=== PATIENT | female | born 1965 | race Caucasian/White ===

== ENCOUNTER 2016-04-03 05:29 | Day surgery (SDC) | payer OTHER ==
[~2016-04-03] VITALS: Ht 165.1 cm; Wt 64.1 kg
[2016-04-03] VITALS (12 sets, daily range): BP systolic 95–117; BP diastolic 51–77; PULSE 61–90; RESP 15–22; Ht 165.1 cm; Wt 64.1 kg
--- NOTE | 2016-04-03 06:49 | RADRPT ---
PROCEDURE: CHEST - 1 VIEW CLINICAL INDICATION: 50-year-old female with postmenopausal bleeding. This is a preoperative stud y. TECHNIQUE: A single frontal AP view of the chest was performed. The images were reviewed on a PAC S workstation. COMPARISON: None. FINDINGS: The cardiomediastinal silhouette is mildly enlarged. There is no evidence for an infiltrate. There is no evidence for congestive heart failure. There is no evidence for pneumothorax. The osseous str uctures are intact. IMPRESSION: Mild cardiomegaly. .Betito Silver MD, MD Date Time Electronically viewed and signed by .Betito Silver MD, MD on 04/03/2016 06:48 .M/
[2016-04-03] MEDS ORDERED: EPHEDrine SULFATE 50 MG/5 ML SYG ONE (07:00)
[2016-04-03 07:22] LABS: BASOPHILS % 0.5 % (0.0-2.0); EOSINOPHILS # 0.2 10^3/ul (0.0-0.5); EOSINOPHILS % 3.4 % (0.0-7.0); HEMATOCRIT 36.9 % (37.0-47.0); HEMOGLOBIN 12.6 g/dl (12.0-16.0); LYMPHOCYTES # 1.5 10^3/ul (0.8-2.9); LYMPHOCYTES % 33.2 % (15.0-51.0); MEAN CORPUSCULAR HEMOGLOBIN 31.3 pg (29.0-33.0); MEAN CORPUSCULAR HGB CONC 34.1 g/dl (32.0-37.0); MEAN PLATELET VOLUME 10.4 fl (7.4-10.4); MONOCYTE # 0.4 10^3/ul (0.3-0.9); MONOCYTES % 8.2 % (0.0-11.0); NEUTROPHIL # 2.5 10^3/ul (1.6-7.5); NEUTROPHILS % 54.7 % (39.0-77.0); PLATELET COUNT 167 10^3/UL (140-440); RED BLOOD COUNT 4.01 10^6/ul (4.20-5.40); RED CELL DISTRIBUTION WIDTH 13.9 % (11.5-14.5); UNCORRECTED WBC 4.5 10^3/ul (4.8-10.8); WHITE BLOOD COUNT 4.5 10^3/ul (4.8-10.8)
[2016-04-03 07:31] LABS: ALBUMIN 3.7 g/dl (3.3-4.9); INR 0.96; PROTIME 12.8 Sec (12.2-14.2)
[2016-04-03 07:32] LABS: PARTIAL THROMBOPLASTIN TIME 26.4 Sec (25.0-35.0); POTASSIUM 4.7 mmol/L (3.5-5.1)
[2016-04-03 07:34] LABS: ALBUMIN/GLOBULIN RATIO 1.23; TOTAL PROTEIN 6.7 g/dl (6.1-8.1)
[2016-04-03 07:35] LABS: CALCIUM 8.9 mg/dl (8.4-10.2); CREATININE 0.72 mg/dl (0.44-1.00)
[2016-04-03 07:50] LABS: CONDITION 1
[2016-04-03 08:06] LABS: ADD UMIC YES; URINE BILIRUBIN (Dip) NEGATIVE (NEGATIVE); URINE BLOOD (Dip) 1+ (NEGATIVE); URINE COLOR LT. YELLOW (YELLOW); URINE GLUCOSE (Dip) NEGATIVE (NEGATIVE); URINE KETONES (Dip) NEGATIVE (NEGATIVE); URINE LEUKOCYTE ESTERASE (Dip) NEGATIVE (NEGATIVE); URINE NITRITE (Dip) NEGATIVE (NEGATIVE); URINE TOTAL PROTEIN (Dip) NEGATIVE (NEGATIVE); URINE UROBILINOGEN (Dip) 0.2 E.U./dL (0.1-1.0)
[2016-04-03] MEDS ORDERED: MIDAZOLAM 1 MG/ML 2 ML INJ ONE (08:10)
[2016-04-03] MEDS ORDERED: PROPOFOL 20 ML ONE (08:19)
[2016-04-03] MEDS ORDERED: METOCLOPRAMIDE 10 MG INJ IV PRN (08:30)
[2016-04-03] MEDS ORDERED: OXYCODONE/ACETAMINOPHEN (5/325) TAB PO PRN ×2 (08:30)
[2016-04-03] MEDS ORDERED: MEPERIDINE 25 MG INJ IV PRN (08:30)
[2016-04-03] MEDS ORDERED: DIPHENHYDRAMINE 50 MG INJ IV PRN (08:30)
[2016-04-03] MEDS ORDERED: HYDROmorphONE (0.2 MG/ML) 10ML SYG IV PRN ×3 (08:30)
[2016-04-03] MEDS ORDERED: KETOROLAC 30 MG INJ ONE (09:18)
[2016-04-03] MEDS ORDERED: KETOROLAC 30 MG INJ IV STA (09:23)
--- NOTE | 2016-04-03 09:29 | PD.PPDC ---
ACCOUNTS EXECUTIVE Discharge Instruction Diagnosis Final Diagnosis: postmenopausal bleeding Diet Diet: Resume Regular Diet Activity/Restrictions Activity: May Shower Restrictions: No Sexual Activity Nothing in the Vagina No [place] No Tampons, douche Follow-up Follow-up with Physician: 2, Week/Weeks Return to clinic for WEL[facility] [employer] FAB Instructions: Fever greater than 101 [place]ills Worsening abdominal pain Excessive Vaginal Bleeding More than 2 pads per hour Unable to tolerate diet JOSE MIGUEL BERNAL MD Apr 03, 2016 09:29
[2016-04-03 09:43] LABS: BACTERIA,URINE RARE; URINE RBCS 0-2 /HPF (0)
--- NOTE | 2016-04-03 15:33 | OPR ---
DATE OF OPERATION: 04/03/2016 PREOPERATIVE DIAGNOSIS: Postmenopausal bleeding. POSTOPERATIVE DIAGNOSIS: Postmenopausal bleeding. See pathological report. OPERATION PERFORMED: Diagnostic hysteroscopy and fractional dilatation and curettage. ANESTHESIA: General. ANESTHESIOLOGIST: DYLLAN ROSE MD. SURGEON: DOLORES SINGH MD. ESTIMATED BLOOD LOSS: Negligible. COUNTS: Final sponge count and instrument count correct. DESCRIPTION OF PROCEDURE: Under appropriate induction of general anesthesia, the patient was placed in dorsolithotomy position. Perineal area and vagina wall was prepped and draped in usual aseptic manner. On bimanual examination, uterus was upper limit of normal size. Surface is not remarkably regular. No palpable adnexal pathology. Weighted speculum introduced. The cervix was identified. Anterior lip of the cervix was grasped with a single tooth tenaculum and cervical os appeared to be nulliparous and the cavity was sounded, which was 8 cm in depth. The os was dilated enough to subm it the hysteroscope, which was inserted and then normal saline was insufflated and the endocervical canal was visualized. As the hysteroscope was advanced, the fundus was visualized and both ostia we re visualized without any difficulty. The endometrium appeared to be atrophied and no gross lesion found. After the hysteroscope was done and removed, all the fluid was suctioned. Endocervical cure ttage was performed with obtaining scanty amount of tissue which was sent to pathology. The os was dilated further and a small uterine curet was introduced into the cavity. Entire uterine cavity was curetted in all directions with obtaining mostly blood and a small amount of tissue which was sent to pathology. The entire cavity was smooth. There was no irregularity noted. The procedure was co mplete. All the instruments removed from the operative field. The patient withstood procedure well and sent to recovery room in stable condition. Dictated By: SAMANTHA MAI/ISAAC Conf#: [id number] DID#: [id number]
--- NOTE | 2016-04-05 14:02 | RADRPT ---
Vent Rate: 67 bpm RR Interval: 0 msec IN Interval: 158 msec QRS Duration: 84 msec QT Interval: 424 msec QTC Interval: 448 msec P-R-T Anderson: 49 - 55 - 29 degrees Normal sinus rhythm Nonspecific T wave abnormality Abnormal ECG Electronically Signed By: Lasha Lang [id number]
== END 2016-04-03 11:05 | disposition home or self-care (01) ==
LOC: SDS 05:29
PROVIDERS: ATTEND Obstetrics & Gynecology
DX: N95.0 Postmenopausal bleeding (principal)
CPT/HCPCS: 58120; 71010; 80053; 81001; 81003; 85025; 85610; 85730; 93005; J1170; J1885; J2250; 84703